=== PATIENT | male | born 1980 | race Caucasian/White ===

== ENCOUNTER 2017-12-02 20:47 | Emergency (ER) | payer OTHER ==
[~2017-12-02 20:47] MED LIST: BACTRIM DS TAB1 EACH PO; CYCLOBENZAPRINE10 M1 PO; IBUPROFEN800 M1 PO; IMITREX6 MG/0.52 SC; KEFLEX500 M1 PO; PREDNISONE50 M1 PO; TESSALON PERLE100 M1 PO; VENTOLIN HFA18 GM INH; ZITHROMAX250 M2 PO
[2017-12-02 21:26] VITALS: BP 111/70
[2017-12-02] MEDS ORDERED: HYDROXYZINE HCL50 M1 PO (21:55)
[2017-12-02] MEDS ORDERED: PREDNISONE50 M1 PO (21:55)
--- NOTE | 2017-12-02 21:56 | ED SKIN/ALLERGY COMPLAINT ---
History of Present Illness General Chief Complaint: Skin Rash/ Abcess Stated Complaint: ?POISON CONRAD Source: patient Exam Limitations: no limitations Vital Signs & Intake/Output Vital Signs & Intake/Output Vital Signs Date Time Temp Pulse Resp B/P B/P Pulse O2 O2 Flow FiO2 Mean Ox Delivery Rate 12/02 2219 Room Air 12/02 2125 97.0 96 22 111/70 98 Allergies Coded Allergies: NO KNOWN ALLERGIES (UNKNOWN 02/09/17) Reconcile Medications Albuterol Sulfate (Ventolin Hfa) 90 MCG HFA.AER.AD 2 PUF INH Q4-6 PRN PRN COUGH/WHEEZE Azithromycin (Zithromax) 250 MG TABLET 1 DP PO AD BRONCHITIS 2 the first day followed by 1 for days 2-5 Benzonatate (Tessalon Perle) 100 MG CAPSULE 1 CAP PO TID PRN COUGH Hydroxyzine Hydrochloride (Atarax) 50 MG TAB 1 TAB PO TID ITCHING Ibuprofen 800 MG TABLET 1 TAB PO TID PRN pain Prednisone 50 MG TABLET 1 TAB PO DAILY CONTACT DERMATITIS Prednisone 50 MG TABLET 1 TAB PO DAILY BRONCHITIS Sumatriptan Succinate (Imitrex) 6 MG/0.5 ML PEN.INJCTR 1 INJ SC X1 PRN MIGRAINE HEADACHE Triage Note: PER PT POISON CONRAD SINCE LAST NIGHT TRIED OTC CREAM WITHOUT EFFECT SL FAINT RASH TO BUE Triage Nurses Notes Reviewed? yes Onset: Abrupt Duration: day(s): Timing: recent history Severity: moderate, severe Location: extremities HPI: 37-year-old male comes into emergency room with complaints of rash that he thinks his poison conrad. Patient has been outside working in the yard. He reports rash on his legs and left arm. Itching. Red. History of the same. Comes in for further evaluation. (Aleksey Washburn) Past History Travel History Traveled to [place] past 21 day No Medical History Any Pertinent Medical History? see below for history Neurological: migraine EENT: NONE Cardiovascular: NONE Respiratory: NONE Gastrointestinal: NONE Hepatic: NONE Renal: NONE Musculoskeletal: NONE Psychiatric: NONE Endocrine: "THYROID LEVELS OFF" Surgical History Surgical History: none Psychosocial History What is your primary language Slovak Tobacco Use: Current Daily Use Daily Tobacco Use Amount/Type: => 5 Cigarettes daily Family History Hx Contributory? No (Aleksey Washburn) Review of Systems Review of Systems Constitutional: Reports: no symptoms. EENTM: Reports: no symptoms. Respiratory: Reports: no symptoms. Cardiovascular: Reports: no symptoms. GI: Reports: no symptoms. Genitourinary: Reports: no symptoms. Musculoskeletal: Reports: no symptoms. Skin: Reports: see HPI. Neurological/Psychological: Reports: no symptoms. Hematologic/Endocrine: Reports: no symptoms. Immunologic/Allergic: Reports: no symptoms. All Other Systems: Reviewed and Negative (Aleksey Washburn) Physical Exam Physical Exam General Appearance: well developed/nourished, mild distress Head: atraumatic Eyes: Bilateral: normal appearance. Ears, Nose, Throat: normal ENT inspection, hearing grossly normal Neck: normal inspection Respiratory: no respiratory distress Cardiovascular: regular rate/rhythm Back: normal inspection Extremities: normal inspection, normal range of motion, no edema Neurologic/Psych: awake, alert, oriented x 3, normal mood/affect Skin: intact, rash Skin Problem Location: upper extremities, lower extremities Skin Problem Character: Erythematous papular rash (Aleksey Washburn) Progress Differential Diagnosis: abscess/cellulitis, anaphylaxis, angioedema, asthma, contact dermatitis, drug reaction Plan of Care: 12/02/2017 10:03:05 PM Rash appears to be most consistent with early contact dermatitis. Patient started on prednisone. Follow-up with PCP. Return if any other concerns. (Aleksey Washburn) Departure Departure Disposition: HOME OR SELF CARE Condition: Stable Clinical Impression Primary Impression: Contact dermatitis Referrals: Sarmad Delacruz DPM (PCP/Family) Additional Instructions: Take prednisone and hydroxyzine as prescribed. Follow-up with primary care doctor as needed. Return if any concerns worsening symptoms. Please go over all results of today's visit with your primary care doctor. Contact your primary care doctor to let them know you were here in the emergency room. There may be nonspecific findings which may not be related to your visit today here in the emergency room but may require further evaluation and chronic monitoring by your primary care doctor. If you had a laceration today the chance of foreign body always remains. You should follow-up with your primary care doctor for recheck in 3-5 days for a wound check. If you had an x-ray done there is a chance that a fracture could have been missed on initial read and you should follow-up with your primary care doctor for repeat x-rays if symptoms persist. If your blood pressure was elevated here in the emergency room please have rechecked by our primary care doctor within the next 48. If you were prescribed a narcotic here in the emergency room or any type of controlled substances you're not allowed to drive while taking this medication or operate any type of heavy machinery. Narcotics can make you feel lightheaded dizziness nausea and can cause constipation. You may need to berry picker machine operator a stool softener. Thank you for choosing [facility] emergency room. Please return to the emergency room immediately if you have any other concerns worsening of symptoms. Departure Forms: Customer Survey General Discharge Information Prescriptions: Current Visit Scripts Prednisone 1 TAB PO DAILY #5 TAB Hydroxyzine Hydrochloride (Atarax) 1 TAB PO TID #30 TAB (Aleksey Washburn) PA/TELEVISION ANTENNA INSTALLER Co-Sign Statement Statement: ED Attending supervision documentation- [] I saw and evaluated the patient. I have also reviewed all the pertinent lab results and diagnostic results. I agree with the findings and the plan of care as documented in the PA's/TELEVISION ANTENNA INSTALLER's documentation. [X] I have reviewed the ED Record and agree with the PA's/TELEVISION ANTENNA INSTALLER's documentation. [] Additions or exceptions (if any) to the PAs/TELEVISION ANTENNA INSTALLER's note and plan are summarized below: [] (Verna SOSA,Jacob Reyna)
== END 2017-12-02 22:20 ==
LOC: ERH 20:47
DX: L25.9 Unspecified contact dermatitis, unspecified cause (principal)